=== PATIENT | male | born 1980 | race Caucasian/White ===

== ENCOUNTER → 2017-07-12 | Outpatient (CLI) | payer OTHER ==
--- NOTE | 2017-07-12 12:16 | CT ---
EXAMINATION TYPE: CT image guided sinus DATE OF EXAM: 07/12/2017 COMPARISON: NONE HISTORY: Sinusitis, pre op surgical navigation CT DLP: 621 mGycm. Automated Exposure Control for Dose Reduction was Utilized. TECHNIQUE: CT scan of the sinuses is performed without contrast, axial images are obtained, coronal r eformatted images are also reviewed. FINDINGS: There is opacification of the inferior left maxillary sinus. There is mucosal thickening within the i nferior right maxillary sinus. 3 prior uncinectomies. There is opacification within the left nasal passage. Opacifications throughou t the left ethmoid air cells and the anterior ethmoid region on the right. There is opacification of the left sphenoid sinus with a small amount of aeration remaining. The frontal sinuses appear essenti ally clear. Study is performed with a localization markers for surgery in place. IMPRESSION: 1. Mucosal thickening and opacification greater on the left through the left ethmoid region, left sph enoid sinus, left maxillary sinus. Some milder mucosal thickenings within the right maxillary sinus a nterior ethmoid region. 2. Study performed with surgical localization markers in place.
== END | disposition home or self-care (01) ==
LOC: RADCTMAIN 11:15
PROVIDERS: ATTEND Otolaryngology
DX: J34.89 Other specified disorders of nose and nasal sinuses (principal)
CPT/HCPCS: 70486

== ENCOUNTER → 2018-08-03 | Outpatient (CLI) | payer OTHER ==
--- NOTE | 2018-08-03 18:32 | MR ---
EXAMINATION TYPE: MR lumbar spine wo con DATE OF EXAM: 08/03/2018 COMPARISON: None HISTORY: LBP, left drop foot TECHNIQUE: Multiplanar, multisequence images of the lumbar spine were acquired. Lumbar vertebra have normal alignment. There is mild to moderate posterior disc herniation at L4-5 an d L5-S1 in the midline. There is bilateral narrowing of the neural foramina at L4-5 and L5-S1 due to disc space narrowing and facet arthropathy. There is no compression fracture. There is no lumbar para spinal mass. The posterior elements appear intact. I see no focal bone destruction.. 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 L4-5 disc herniation is slightly to the left side. L5-S1 hernia tion is midline. There is no significant spinal stenosis. There is neural foraminal stenosis bilatera lly. No fracture.
== END | disposition home or self-care (01) ==
LOC: RADMRIMAIN 17:35
PROVIDERS: ATTEND Family Medicine
DX: M48.061 Spinal stenosis, lumbar region without neurogenic claudication (principal); M51.27 Other intervertebral disc displacement, lumbosacral region; M47.816 Spondylosis without myelopathy or radiculopathy, lumbar region
CPT/HCPCS: 72148